=== PATIENT | male | born 1955 | race Caucasian/White ===

== ENCOUNTER 2017-01-20 20:37 | Inpatient (IN) | payer OTHER ==
[~2017-01-20] VITALS: Ht 177.8 cm; Wt 84.8 kg
--- NOTE | ~2017-01-20 | H ---
[facility] [place] [address] HISTORY AND PHYSICAL Name: FRANCISCO GARCIA Room #: 406-P [facility] IN M.R.#: [id number] Admission: 01/20/17 Attend Phys: Letser Sánchez MD Discharge: 01/23/17 Date of : 55 Report #: [id number] THIS REPORT FOR: //name// CC: [facility] physician/PCP Lester Sánchez ATTENDING PHYSICIAN: Lester Sánchez M.D. PRIMARY CARE PHYSICIAN: [facility]. CHIEF COMPLAINT: Abdominal pain. HISTORY OF PRESENT ILLNESS: The patient is a 61-year-old male who comes to the ER complaining of constipation. He said he had not had a bowel movement in the last 3 days. His pain is across the krw-ip-vgzpm abdomen. He says eating anything makes his pain significantly worse. He has been able to tolerate some liquids without any significant pain. Because of his pain after eating, he has decreased his oral intake. He has continued to take his regular insulin and metformin despite not eating much. He did report that he had a bloody stool which was dark red and "changed the toilet water red" about 3 days ago. He had not had any bowel movement since. He denies any diarrhea prior to that. Denies any vomiting. Denies any fevers or chills. In the ER, he was hypoglycemic and has been given D50. He also was noted to have a significant esophagitis on CT. He denies ever having an EGD in the past. He has had prior colonoscopy. He is on Plavix. PAST MEDICAL HISTORY: Significant for coronary artery disease with prior [place], diabetes, hypertension, CVA and hyperlipidemia. PAST SURGICAL HISTORY: Coronary stents times 2, abdominal surgery as a child and left ankle repair. ALLERGIES: NITROGLYCERIN, CODEINE, CONTRAST DYE, FENTANYL, LATEX SENSITIVITY and PENICILLIN. HOME MEDICATIONS: Lantus insulin 75 units at bedtime, sertraline 50 mg daily, Humalog insulin 13 units with meals, metformin 500 mg b.i.d., Neurontin 300 mg q.i.d., aspirin 81 mg daily, Plavix 75 mg daily, Lopressor 50 mg b.i.d., simvastatin 20 mg at bedtime and Flomax 0.4 mg daily. SOCIAL HISTORY: The patient was a previous pipe smoker for about 40 years. He quit a few months ago. He denies any alcohol or drug use. He does live alone. 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 FAMILY HISTORY: Unknown as the patient is adopted. REVIEW OF SYSTEMS: Twelve-point review of systems was reviewed with the [address] [address] HISTORY AND PHYSICAL Name: FRANCISCO GARCIA Room #: 406-P DIS IN M.R.#: [id number] Admission: 01/20/17 Attend Phys: Lester Sánchez MD Discharge: 01/23/17 Date of : 55 Report #: [id number] patient; otherwise, negative unless stated in the HPI. PHYSICAL EXAMINATION: GENERAL: The patient is an alert male in no acute distress. VITAL SIGNS: Temperature is 36.8, heart rate 87, respirations 18, blood pressure is 110/61 and oxygen 93% on room air. HEENT: PERRLA. Sclerae is nonicteric. Oral mucosa is pink and moist. NECK: Supple. No JVD noted. CARDIAC: Normal S1, S2. No murmurs, rubs or gallops. RESPIRATORY: Breath sounds are clear bilaterally. No wheezing or rhonchi. Breathing is nonlabored. ABDOMEN: Soft and significantly tender throughout, especially in the epigastric area to even light touch. Bowel sounds are positive. VASCULAR: No edema noted. Pedal pulses are 2+. NEUROLOGIC: The patient is alert and oriented times 3. Speech is clear. He is answering questions appropriately and following commands. No focal weakness noted. LABS AND DIAGNOSTICS: CBC showed a WBC of 10.1, hemoglobin 13 and platelets 410,000. Sodium 141, potassium 3.7, BUN 6, creatinine 0.9 and glucose 48. LFTs within normal limits. Albumin 2.9. Lipase 87. U/A is negative for leukocyte esterase. EKG showing sinus rhythm. CT of the abdomen showed distal esophagus demonstrates some wall thickening, raising concern for esophagitis. There is a tiny liver cyst. There is moderate diverticulosis without diverticulitis or obstruction, and there is an infrarenal abdominal aortic aneurysm measuring 3.2 cm. ASSESSMENT AND PLAN: 1. Abdominal pain. CT is showing esophagitis, but the patient also reported melena. We cannot rule out gastrointestinal bleed. We will consult GI for possible EGD and/or colonoscopy. We will Hemoccult mixed stool. We will add Protonix b.i.d. He is not having any active bleeding. We will keep him n.p.o. 2. Hypoglycemia, likely due to poor p.o. intake with home dose of insulin. He did take his medications , including his Lantus. So, we will have to continue with D5 per IV fluids to maintain his sugars. We will hold off on any home metformin or further insulin and if his sugars improve, we will add back the sliding scale insulin. 3. Reported melanoma times 1. Hemoglobin is stable, hemoccult mixed stools. 4. Diabetes. Blood sugar is low. Continue with the above plan. 5. History of coronary artery disease with prior stents. He is denying any chest pain. He says his abdominal pain is very different from his prior cardiac pain and troponin is negative. We will continue with Plavix until we know if he has had any GI bleeding. 6. Hypertension. This is stable. Continue home medications. 7. Hyperlipidemia. Continue statin therapy. 8. Incidental infrarenal abdominal aortic aneurysm per CT. This has not been [facility] [address] [place] [address] HISTORY AND PHYSICAL Name: FRANCISCO GARCIA Room #: 406-P [facility] IN M.R.#: [id number] Admission: 01/20/17 Attend Phys: Lester Sánchez MD Discharge: 01/23/17 Date of : 55 Report #: [id number] mentioned in his prior records. We will need to follow up on this outpatient with serial CTs to ensure stability. 9. Deep venous thrombosis prophylaxis, place sequential compression devices. We will continue to follow the patient closely throughout the hospitalization and make changes based on the clinical status. <ELECTRONICALLY SIGNED> By: AMBER Chun 01/24/17 0658 1049 1248 AMBER Chun /nt
--- NOTE | ~2017-01-20 | EKG ---
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
[~2017-01-20 20:37] MED LIST: ASPIR 8181 MG PO; FLOMAX0.4 MG PO; HUMALOG100 UNIT/1 SUBQ; LANTUS100 UNIT/M SUBQ; LOPRESSOR50 PO; METFORMIN HCL500 MG PO; NOVOLIN 70100 UNIT/5 SQ; PLAVIX 75 MG TA75 MG PO; SERTRALINE HCL50 MG PO; ULTRAM 50MG TAB50 MG PO; ZOCOR20 MG PO
[2017-01-20 20:38] VITALS: BP 110/61
[2017-01-20 21:08] LABS: ABSOLUTE NEUTROPHILS 4.7 thou/uL (1.4-8.2); BASOPHILS 1.4 % (0.0-2.0); EOSINOPHILS 4.2 % (0.0-3.0); LYMPHOCYTES 43.5 % (24.0-44.0); MCH 28.1 pg (26.0-34.0); MCHC 34.2 g/dL (28.0-37.0); MCV 82.4 fL (80.0-100.0); MONOCYTES 4.9 % (1.0-8.0); PLATELET COUNT 410 thou/uL (150-400); RBC 4.62 mil/uL (4.50-6.00); RDW 14.3 % (10.5-14.5); WBC 10.1 thou/uL (4.0-11.0)
[2017-01-20 21:11] LABS: MANUAL DIFF NO
[2017-01-20 21:21] LABS: ANION GAP 6 mmol/L (7-16); BUN 6 mg/dL (7-18); CHLORIDE 110 mmol/L (98-107); CO2 25 mmol/L (21-32); CREATININE 0.9 mg/dL (0.6-1.3); GLUCOSE 48 mg/dL (70-99); POTASSIUM 3.7 mmol/L (3.5-5.1); SODIUM 141 mmol/L (136-145)
[2017-01-20 21:27] LABS: ALBUMIN 2.9 g/dL (3.4-5.0); ALKALINE PHOSPHATASE 93 U/L (46-116); SGOT 17 U/L (15-37); SGPT 24 U/L (30-65); TOTAL BILIRUBIN 0.2 mg/dL (<0.1-1.0); TOTAL PROTEIN 6.4 g/dL (6.4-8.2); TROPONIN-I < 0.04 ng/mL (<0.04-0.07)
[2017-01-20] MEDS ORDERED: NEURONTIN 300300 M1 PO (23:02)
[2017-01-21 00:24] VITALS: BP 129/57
[2017-01-21 02:28] LABS: URINE BILIRUBIN NEGATIVE (Negative); URINE BLOOD NEGATIVE (Negative); URINE COLOR YELLOW; URINE GLUCOSE-RANDOM* TRACE (Negative); URINE KETONES NEGATIVE (Negative); URINE LEUKOCYTES-REFLEX NEGATIVE (Negative); URINE PROTEIN (DIPSTICK) NEGATIVE (Negative); URINE SPECIFIC GRAVITY <= 1.005 (1.003-1.035); URINE UROBILINOGEN 0.2 E.U./dl (0.2-1.0)
[2017-01-21 08:00] VITALS: BP 100/63
[2017-01-21 16:00] VITALS: BP 110/56
[2017-01-21 19:42] VITALS: BP 113/62
[2017-01-22 04:44] VITALS: BP 113/70
[2017-01-22 08:00] VITALS: BP 139/63
[2017-01-22 11:24] LABS: HEMATOCRIT 41.5 % (42.0-52.0); HEMOGLOBIN 13.5 gm/dL (14.0-18.0); MCH 27.1 pg (26.0-34.0); MCHC 32.4 g/dL (28.0-37.0); MCV 83.5 fL (80.0-100.0); RBC 4.97 mil/uL (4.50-6.00); RDW 14.9 % (10.5-14.5); WBC 11.4 thou/uL (4.0-11.0)
[2017-01-22 11:32] LABS: CALCIUM 9.1 mg/dL (8.5-10.1); CREATININE 0.9 mg/dL (0.6-1.3); POTASSIUM 4.5 mmol/L (3.5-5.1)
[2017-01-22 16:00] VITALS: BP 116/63
[2017-01-22 20:00] VITALS: BP 122/70
[2017-01-23 04:21] VITALS: BP 145/61
[2017-01-23] MEDS ORDERED: MIRALAX17 GM PO (08:32)
[2017-01-23] MEDS ORDERED: PROTONIX40 M2 PO (08:32)
[2017-01-23 08:35] VITALS: BP 145/61
== END 2017-01-23 14:22 | disposition home or self-care (01) | DRG 392 ==
LOC: ER 20:37 → 4N 23:55 → EROBS 23:55 → 4N 01-21 00:24
PROVIDERS: Emergency Medicine; Internal Medicine
PROC: 0DJ08ZZ Inspection of Upper Intestinal Tract, Via Natural or Artificial Opening Endoscopic (ICD-10-PCS; principal; 2017-01-22)
DX: K59.00 Constipation, unspecified (principal); K20.9 Esophagitis, unspecified; I25.10 Atherosclerotic heart disease of native coronary artery without angina pectoris; I10 Essential (primary) hypertension; J44.9 Chronic obstructive pulmonary disease, unspecified; F17.290 Nicotine dependence, other tobacco product, uncomplicated; E11.649 Type 2 diabetes mellitus with hypoglycemia without coma; I11.9 Hypertensive heart disease without heart failure; E78.5 Hyperlipidemia, unspecified; I99.9 Unspecified disorder of circulatory system; Z60.2 Problems related to living alone; Z86.73 Personal history of transient ischemic attack (TIA), and cerebral infarction without residual deficits; I25.2 Old myocardial infarction; Z95.5 Presence of coronary angioplasty implant and graft; Z88.6 Allergy status to analgesic agent; Z79.82 Long term (current) use of aspirin; Z88.8 Allergy status to other drugs, medicaments and biological substances; Z88.0 Allergy status to penicillin; Z91.040 Latex allergy status; Z91.041 Radiographic dye allergy status; Z79.4 Long term (current) use of insulin; Z79.899 Other long term (current) drug therapy; Z91.09 Other allergy status, other than to drugs and biological substances
CPT/HCPCS: 10091; 62110; 62900

== ENCOUNTER 2017-03-04 22:16 | Inpatient (IN) | payer OTHER ==
[~2017-03-04] VITALS: Ht 177.8 cm; Wt 81.2 kg
--- NOTE | ~2017-03-04 | EKG ---
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
--- NOTE | ~2017-03-04 | EKG ---
[address] [address] ELECTROCARDIOGRAM REPORT Name: FRANCISCO GARCIA Room #: 463-P [facility] IN M.R.#: [id number] Admission: 03/05/17 Attend Phys: Neymar Velasquez Discharge: 03/05/17 Date of : 55 Report #: [id number] THIS REPORT FOR: //name// [facility] ED Test Date: 2017-03-04 Test Time: 22:32:58 Pat Name: FRANCISCO GARCIA Department: Room: 463 Gender: M Upper Doubler: KEARA : 1955 Requested By: Nilda Figueroa Order Number: [id number] MD: Jayden Kwan Measurements Intervals [place] Rate: 88 P: 72 [place]: 172 QRS: 55 QRSD: 91 T: 128 QT: 401 QTc: 486 Interpretive Statements Sinus rhythm PVCs Nonspecific ST segments Electronically Signed On 03-05-2017 22:32:02 CDT by Jayden Kwan [email or web address] <ELECTRONICALLY SIGNED> By: Jayden Kwan MD 03/05/172231 31 2232 Jayden Kwan MD /OMSEL
--- NOTE | ~2017-03-04 | EKG ---
[address] [place] [address] ELECTROCARDIOGRAM REPORT Name: FRANCISCO GARCIA Room #: 463- DIS IN M.R.#: [id number] Admission: 03/05/17 Attend Phys: Neymar Velasquez Discharge: 03/05/17 Date of : 55 Report #: [id number] THIS REPORT FOR: //name// [facility] Test Date: 2017-03-05 Test Time: 08:10:39 Pat Name: FRANCISCO GARCIA Department: Room: 463 P Gender: M Vice Chair: mayur pablo : 1955 Requested By: Re Kc Order Number: [id number] MD: Jayden Kwan Measurements Intervals [place] Rate: 89 P: 79 [place]: 177 QRS: 79 QRSD: 87 T: 121 QT: 403 QTc: 491 Interpretive Statements Sinus rhythm Consider left atrial enlargement Abnormal R-wave progression, late transition Borderline repolarization abnormality Borderline prolonged QT interval Compared to ECG 02/13/2017 20:24:33 ST (T wave) deviation no longer present Electronically Signed On 03-05-2017 22:40:38 CDT by Jayden Kwan [email or web address] <ELECTRONICALLY SIGNED> By: Jayden Kwan MD 03/05/17 2240 0810 0810 Jayden Kwan MD /EPI
[~2017-03-04 22:16] MED LIST changes: +ASPIRIN81 M2 PO; +GLUCOPHAGE1000 MG PO; +LANTUS SUBQ; +LISINOPRIL10 MG PO; +LOPRESSOR25 PO; +MIRALAX17 GM PO; +NEURONTIN 300300 M1 PO; +PLAVIX 75 MG TA75 M1 PO; +PRINIVIL10 MG PO; +PROTONIX40 M2 PO; +ZOLOFT25 MG PO
[2017-03-04 22:17] VITALS: BP 173/75
[2017-03-04 23:00] LABS: ABSOLUTE NEUTROPHILS 4.3 thou/uL (1.4-8.2); BASOPHILS 1.9 % (0.0-2.0); EOSINOPHILS 4.8 % (0.0-3.0); HEMATOCRIT 38.6 % (42.0-52.0); HEMOGLOBIN 12.8 gm/dL (14.0-18.0); LYMPHOCYTES 37.8 % (24.0-44.0); MCH 26.9 pg (26.0-34.0); MCHC 33.1 g/dL (28.0-37.0); MONOCYTES 4.8 % (1.0-8.0); PLATELET COUNT 413 thou/uL (150-400); POLYS 50.7 % (36.0-66.0); RBC 4.76 mil/uL (4.50-6.00); RDW 15.9 % (10.5-14.5); WBC 8.5 thou/uL (4.0-11.0)
[2017-03-04 23:04] LABS: MANUAL DIFF NO
[2017-03-04 23:26] LABS: CHLORIDE 104 mmol/L (98-107); POTASSIUM 4.2 mmol/L (3.5-5.1); SODIUM 138 mmol/L (136-145)
[2017-03-04 23:35] LABS: BUN 10 mg/dL (7-18); CALCIUM 8.9 mg/dL (8.5-10.1); CO2 25 mmol/L (21-32); CREATININE 0.9 mg/dL (0.7-1.3); GLUCOSE 242 mg/dL (74-106)
[2017-03-04 23:41] LABS: TROPONIN-I < 0.04 ng/mL (<0.04-0.07)
[2017-03-04 23:42] LABS: ANION GAP 8 mmol/L (7-16)
[2017-03-05 01:37] VITALS: BP 150/73
[2017-03-05 01:45] VITALS: BP 140/86
[2017-03-05] MEDS ORDERED: ASPIRIN325 PO (02:18)
[2017-03-05] MEDS ORDERED: NEURONTIN 300300 M1 PO (02:19)
[2017-03-05 03:04] LABS: APTT 26.3 Seconds (24.5-32.8); PROTIME 10.2 Seconds (9.3-11.4)
[2017-03-05 04:11] VITALS: BP 140/69
[2017-03-05 05:54] LABS: CK-MB MASS 7.6 ng/mL (<0.5-3.6); TROPONIN-I < 0.04 ng/mL (<0.04-0.07)
[2017-03-05 08:09] VITALS: BP 114/69
[2017-03-06] MEDS ORDERED: DUONEB 2.5-0.5 M3 ML INH ×2 (12:23→13:11)
[2017-03-06] MEDS ORDERED: PREDNISONE 20 M20 M1 PO (13:11)
[2017-03-06] MEDS ORDERED: GLUCOPHAGE1000 MG PO (13:11)
== END 2017-03-05 10:06 | disposition left against medical advice (07) | DRG 313 ==
LOC: ER 22:16 → EROBS 03-05 → 4W 03-05 01:38
PROVIDERS: Emergency Medicine
DX: R07.89 Other chest pain (principal); J44.1 Chronic obstructive pulmonary disease with (acute) exacerbation; E11.65 Type 2 diabetes mellitus with hyperglycemia; I10 Essential (primary) hypertension; I25.10 Atherosclerotic heart disease of native coronary artery without angina pectoris; E78.5 Hyperlipidemia, unspecified; F17.290 Nicotine dependence, other tobacco product, uncomplicated; Z53.21 Procedure and treatment not carried out due to patient leaving prior to being seen by health care provider; Z79.4 Long term (current) use of insulin; Z71.6 Tobacco abuse counseling; Z76.5 Malingerer [conscious simulation]; Z95.5 Presence of coronary angioplasty implant and graft; Z79.82 Long term (current) use of aspirin; Z79.899 Other long term (current) drug therapy; Z88.6 Allergy status to analgesic agent; Z91.041 Radiographic dye allergy status; Z91.040 Latex allergy status; Z88.0 Allergy status to penicillin; Z91.048 Other nonmedicinal substance allergy status; Z88.8 Allergy status to other drugs, medicaments and biological substances; I25.2 Old myocardial infarction
CPT/HCPCS: 10045

== ENCOUNTER 2017-04-12 11:55 | Emergency (ER) | payer OTHER ==
[~2017-04-12] VITALS: Ht 177.8 cm; Wt 82.6 kg
--- NOTE | ~2017-04-12 | EKG ---
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: : 1955 Requested By: Bean Estrada Order Number: [id number] MD: Michael Escobar Measurements Intervals [place] Rate: 92 P: 78 [place]: 182 QRS: 76 QRSD: 89 T: 77 QT: 375 QTc: 464 Interpretive Statements Sinus rhythm Abnormal R-wave progression, late transition Borderline repolarization abnormality Compared to ECG 03/05/2017 08:10:39 No significant changes Electronically Signed On 04-14-2017 7:52:46 CDT by Michael Escobar [email or web address] <ELECTRONICALLY SIGNED> By: Michael Escobar MD, [facility] 04/14/17 0752 1200 99 Michael Escobar MD, FACC /EPI
[~2017-04-12 11:55] MED LIST changes: +ASPIRIN325 PO; +DUONEB 2.5-0.5 M3 ML INH; +PREDNISONE 20 M20 M1 PO
[2017-04-12 13:21] LABS: ABSOLUTE NEUTROPHILS 3.1 thou/uL (1.4-8.2); BASOPHILS 1.1 % (0.0-2.0); EOSINOPHILS 9.9 % (0.0-3.0); HEMATOCRIT 39.5 % (42.0-52.0); LYMPHOCYTES 39.3 % (24.0-44.0); MCH 26.6 pg (26.0-34.0); MCHC 32.9 g/dL (28.0-37.0); MCV 80.8 fL (80.0-100.0); MONOCYTES 5.8 % (1.0-8.0); PLATELET COUNT 307 thou/uL (150-400); POLYS 43.9 % (36.0-66.0); RDW 16.4 % (10.5-14.5); WBC 7.1 thou/uL (4.0-11.0)
[2017-04-12 13:25] LABS: MANUAL DIFF NO
[2017-04-12 13:40] LABS: ANION GAP 11 mmol/L (7-16); BUN 5 mg/dL (7-18); CALCIUM 9.1 mg/dL (8.5-10.1); CHLORIDE 106 mmol/L (98-107); CO2 26 mmol/L (21-32); GLUCOSE 140 mg/dL (74-106); POTASSIUM 3.9 mmol/L (3.5-5.1); SODIUM 143 mmol/L (136-145)
[2017-04-12 13:45] LABS: APTT 24.8 Seconds (24.5-32.8); INR 1.1; PROTIME 10.9 Seconds (9.3-11.4)
[2017-04-12 14:08] LABS: ALBUMIN 3.3 g/dL (3.4-5.0); ALKALINE PHOSPHATASE 84 U/L (46-116); MAGNESIUM 1.4 mg/dL (1.8-2.4); NT-PRO BRAIN NAT PEPTIDE 308 pg/mL (<300); SGOT 14 U/L (15-37); SGPT 17 U/L (30-65); TOTAL BILIRUBIN 0.2 mg/dL (<0.1-1.0); TOTAL PROTEIN 6.7 g/dL (6.4-8.2); TROPONIN-I < 0.04 ng/mL (<0.04-0.07)
[2017-04-12] MEDS ORDERED: ZOFRAN ODT4 MG DISSOLVE (14:44)
[2017-04-12] MEDS ORDERED: TRAMADOL 50 MG50 MG PO (14:44)
== END 2017-04-12 15:24 | disposition home or self-care (01) ==
LOC: ER 11:55
PROVIDERS: Emergency Medicine
DX: R07.89 Other chest pain (principal); R55 Syncope and collapse; I25.10 Atherosclerotic heart disease of native coronary artery without angina pectoris; I10 Essential (primary) hypertension; E11.9 Type 2 diabetes mellitus without complications; E78.00 Pure hypercholesterolemia, unspecified; F17.200 Nicotine dependence, unspecified, uncomplicated; J44.9 Chronic obstructive pulmonary disease, unspecified; Z98.890 Other specified postprocedural states; Z95.5 Presence of coronary angioplasty implant and graft; Z79.4 Long term (current) use of insulin; Z88.6 Allergy status to analgesic agent; Z88.5 Allergy status to narcotic agent; Z91.041 Radiographic dye allergy status; Z88.4 Allergy status to anesthetic agent; Z91.040 Latex allergy status; Z88.0 Allergy status to penicillin; Z91.048 Other nonmedicinal substance allergy status

== ENCOUNTER 2017-04-28 19:37 | Observation (INO) | payer OTHER ==
[~2017-04-28] VITALS: Ht 167.6 cm; Wt 86.2 kg
--- NOTE | ~2017-04-28 | EKG ---
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: [id number] : 1955 Requested By: Conor Najera Order Number: [id number] MD: Leonel Newsome Measurements Intervals [place] Rate: 82 P: 53 [place]: 182 QRS: 47 QRSD: 90 T: 167 QT: 378 QTc: 442 Interpretive Statements Sinus rhythm Probable left atrial enlargement Borderline repolarization abnormality nonspecific ST segment abnormalities Compared to ECG 04/12/2017 12:00:19 no significant change Electronically Signed On 04-29-2017 2:13:19 CDT by Leonel Newsome [email or web address] <ELECTRONICALLY SIGNED> By: Leonel Newsome MD 04/29/17 0213 2144 43 Leonel Newsome MD /OSMEL
--- NOTE | ~2017-04-28 | EKG ---
[address] [place] [address] ELECTROCARDIOGRAM REPORT Name: FRANCISCO GARCIA Room #: 447-P [facility].R.#: [id number] Admission: 04/28/17 Attend Phys: Neymar Velasquez Discharge: Date of : 55 Report #: [id number] THIS REPORT FOR: //name// [facility] [place] ED Test Date: 2017-04-28 Test Time: 19:42:36 Pat Name: FRANCISCO GARCIA Department: Room: [facility] Gender: M Diamond Saw Operator: MZOOCarlota : 1955 Requested By: Conor Najera Order Number: [id number] MD: Leonel Newsome Measurements Intervals [place] Rate: 91 P: 66 [place]: 177 QRS: 86 QRSD: 90 T: 158 QT: 392 QTc: 483 Interpretive Statements Sinus rhythm Nonspecific ST segmentT abnormalities, lateral leads Borderline prolonged QT interval Compared to ECG 04/12/2017 12:00:19 no significant change Electronically Signed On 04-29-2017 2:11:34 CDT by Leonel Newsome [email or web address] <ELECTRONICALLY SIGNED> By: Leonel Newsome MD 04/29/17 0211 194 41 Leonel Newsome MD /OSMEL
[~2017-04-28 19:37] MED LIST changes: +TRAMADOL 50 MG50 MG PO; +ZOFRAN ODT4 MG DISSOLVE
[2017-04-28 19:38] VITALS: BP 133/66
[2017-04-28 20:22] LABS: ABSOLUTE NEUTROPHILS 5.8 thou/uL (1.4-8.2); BASOPHILS 0.8 % (0.0-2.0); EOSINOPHILS 7.6 % (0.0-3.0); HEMATOCRIT 38.6 % (42.0-52.0); HEMOGLOBIN 12.8 gm/dL (14.0-18.0); LYMPHOCYTES 36.5 % (24.0-44.0); MCH 26.4 pg (26.0-34.0); MCHC 33.1 g/dL (28.0-37.0); MCV 79.7 fL (80.0-100.0); MONOCYTES 5.3 % (1.0-8.0); POLYS 49.8 % (36.0-66.0); RBC 4.83 mil/uL (4.50-6.00); RDW 16.2 % (10.5-14.5); WBC 12.2 thou/uL (4.0-11.0)
[2017-04-28 20:23] LABS: MANUAL DIFF NO
[2017-04-28 20:29] LABS: ANION GAP 10 mmol/L (7-16); BUN 9 mg/dL (7-18); CALCIUM 9.1 mg/dL (8.5-10.1); CHLORIDE 104 mmol/L (98-107); CO2 21 mmol/L (21-32); CREATININE 0.9 mg/dL (0.7-1.3); GLUCOSE 231 mg/dL (74-106); SODIUM 135 mmol/L (136-145)
[2017-04-28 20:35] LABS: ALBUMIN 3.1 g/dL (3.4-5.0); ALKALINE PHOSPHATASE 89 U/L (46-116); MAGNESIUM 1.3 mg/dL (1.8-2.4); SGOT 14 U/L (15-37); SGPT 17 U/L (30-65); TOTAL BILIRUBIN 0.2 mg/dL (<0.1-1.0); TOTAL PROTEIN 6.8 g/dL (6.4-8.2); TROPONIN-I < 0.04 ng/mL (<0.04-0.07)
[2017-04-28 20:46] LABS: PLATELET COUNT 387 thou/uL (150-400)
[2017-04-28 22:50] VITALS: BP 93/63
[2017-05-01] MEDS ORDERED: CIPRO500 MG PO (23:05)
[2017-05-01] MEDS ORDERED: NORCO 5-325 TA1 EACH PO (23:05)
[2017-05-01] MEDS ORDERED: ZOFRAN ODT4 MG PO (23:05)
== END 2017-04-29 06:05 | disposition left against medical advice (07) ==
LOC: ER 19:37 → EROBS 22:03 → 4S 22:52
PROVIDERS: Emergency Medicine
DX: R07.89 Other chest pain (principal); I25.2 Old myocardial infarction; I10 Essential (primary) hypertension; E11.9 Type 2 diabetes mellitus without complications; E78.5 Hyperlipidemia, unspecified; J44.9 Chronic obstructive pulmonary disease, unspecified; F17.210 Nicotine dependence, cigarettes, uncomplicated; Z95.5 Presence of coronary angioplasty implant and graft

== ENCOUNTER 2017-07-08 20:40 | Emergency (ER) | payer OTHER ==
--- NOTE | ~2017-07-08 | EKG ---
[address] [address] [address] [facility] 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: BILLY : 1955 Requested By: Latrice Sosa Order Number: [id number] MD: Leonel Newsome Measurements Intervals [place] Rate: 97 P: 68 [place]: 158 QRS: 63 QRSD: 87 T: 84 QT: 375 QTc: 477 Interpretive Statements Sinus rhythm Probable left atrial enlargement Abnormal R-wave progression, late transition Nonspecific ST segment abnormalities Borderline prolonged QT interval Compared to ECG 04/28/2017 21:44:37 ST (T wave) deviation now present Electronically Signed On 07-09-2017 10:54:54 CDT by Leonel Newsome [email or web address] <ELECTRONICALLY SIGNED> By: Leonel Newsome MD 07/09/17 1054 42 42 Leonel Newsome MD /OSMEL
[~2017-07-08 20:40] MED LIST changes: +CIPRO500 MG PO; +NORCO 5-325 TA1 EACH PO; +ZOFRAN ODT4 MG PO
== END 2017-07-08 21:22 | disposition left against medical advice (07) ==
LOC: ER 20:40
DX: Z53.21 Procedure and treatment not carried out due to patient leaving prior to being seen by health care provider (principal)

== ENCOUNTER 2019-06-04 19:46 | Inpatient (IN) | payer OTHER ==
[~2019-06-04] VITALS: Ht 177.8 cm; Wt 81.2 kg
[~2019-06-04 19:46] MED LIST changes: +ASPIR 8181 M1 PO; +BACTRIM DS TAB1 EACH PO; +HUMALOG KW100 UNIT/1 SUBQ; +LANTUS SOL100 UNIT/1 INJECTION; +LEVAQUIN 500 M500 MG PO; +LIPITOR10 MG PO; +METOPROLOL TART25 MG PO; +PERCOCET 5-3251 EACH PO; +PREDNISONE 20 M20 MG PO; +TOPROL XL25 MG PO; +VENTOLIN HFA 1818 GM INH; +XARELTO15 MG PO
[2019-06-04 19:48] VITALS: BP 129/77
[2019-06-04 20:35] LABS: HEMATOCRIT 32.3 % (42.0-52.0); HEMOGLOBIN 10.1 gm/dL (14.0-18.0); MCH 22.2 pg (26.0-34.0); MCHC 31.2 g/dL (28.0-37.0); MCV 71.1 fL (80.0-100.0); PLATELET COUNT 434 thou/uL (150-400); RBC 4.54 mil/uL (4.50-6.00); RDW 24.2 % (10.5-14.5); WBC 7.4 thou/uL (4.0-11.0)
[2019-06-04 20:39] LABS: ANION GAP 8 mmol/L (7-16); BUN 9 mg/dL (7-18); CALCIUM 8.7 mg/dL (8.5-10.1); CHLORIDE 102 mmol/L (98-107); CO2 25 mmol/L (21-32); CREATININE 0.9 mg/dL (0.7-1.3); GLUCOSE 280 mg/dL (74-106); POTASSIUM 3.6 mmol/L (3.5-5.1); SODIUM 135 mmol/L (136-145)
[2019-06-04 20:48] LABS: TROPONIN-I <0.06 ng/mL (<0.06)
[2019-06-04 20:50] LABS: INR 1.1; PROTIME 11.4 Seconds (9.3-11.4)
[2019-06-04 21:05] LABS: ABSOLUTE NEUTROPHILS 3.7 thou/uL (1.4-8.2)
[2019-06-04 21:06] LABS: ANISOCYTOSIS 3+; HYPOCHROMASIA 2+; MICROCYTES 2+; PLATELET ESTIMATE INCREASED; POIKILOCYTOSIS 1+; POLYCHROMASIA 1+
[2019-06-04 21:57] VITALS: BP 124/66
[2019-06-04 22:28] VITALS: BP 124/66
[2019-06-04 22:48] VITALS: BP 140/57
[2019-06-04 23:17] LABS: CHOLESTEROL 90 mg/dL (<200); HDL CHOLESTEROL 30 mg/dL (>40); LDL CHOLESTEROL 26 mg/dL (<100); TRIGLYCERIDE 173 mg/dL (<150); VLDL 35 mg/dL (<40)
[2019-06-04 23:18] LABS: SERUM ASSESSMENT Clear
--- NOTE | 2019-06-05 04:12 | NUR ---
ADM. NOTE. PT ARRIVED ON UNIT AROUND 2200 FOR ED FOR CHEST PAIN. ALERT AND ORIENTED. PT IS ALLERGIC TO NITRO. MORPHINE GIVEN X 1 ON THE UNIT. PT WOULD ONLY TAKE MORPHINE. REFUSED OXYGEN WHEN HIS O2 WAS LESS THAN 90%/.. REFUSED GI COCKTAIL. PT WAS NPO SINCE MIDNIGHT. NO C/O CP THIS FAR. PT GENERALLY NON COMPLAIANT WITH PLAN OF CARE. CONTINOUS EDUCATION IS NEEDED. WILL FOLLOW POC
[2019-06-05 06:14] VITALS: BP 145/57
--- NOTE | 2019-06-05 07:47 | NUR ---
PRIOR TO REPORT, PT CALLED TO SAY HE HAD CP, RATES AT 8/10, STATES HE HAD ALL NIGHT BUT NO ONE CARES, NIGHT NURSE ASKED THIS A.M. WHEN PASSING EARLY AM MED AND PT DENIED ANY CP. VS WNL. DECLINES VS YET WENT AHEAD AND TOOK THEM. NIGHT STAFF REPORTS PT DECLINED PHOTOGRAPH OF A MISSING LITTLE TOE ON LEFT FOOT, WILL ACCOMPLISH TODAY IF ALLOWED. AFTER GIVEN MS THIS A.M. RATED PAIN LESS, WOULD NOT OPEN EYES FOR ME TO SHOW HIM CALL LIGHT USE, STATES HE ALREADY KNOWS. SPOKE W/CARDIOLOGY TRAILER CHIEF TO GIVE BRIEF UPDATE. WILL CONTINUE TO MONITOR. REPORTS ALSO OF SATS LOW WITHOUT 02 NC, WILL RELAY TO HOSPITALIST THIS A.M. SHOULD RT TX BE NEEDED. COARSE LUNGS AT THIS TIME.
--- NOTE | 2019-06-05 07:53 | EKG ---
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 Machine Operator: BRITTNI : 1955 Requested By: Latrice Sosa Order Number: [id number] MD: Michael Escobar Measurements Intervals [place] Rate: 97 P: 79 [place]: 180 QRS: -41 QRSD: 137 T: 119 QT: 388 QTc: 493 Interpretive Statements Sinus rhythm Left bundle branch block Compared to ECG 07/08/2017 20:43:46 Left bundle branch block is now present Electronically Signed On 06-05-2019 7:53:27 CDT by Michael Escobar [email or web address] ��������������������������������������������� <ELECTRONICALLY SIGNED> ���������������������������������������� By: Michael Escobar MD, [facility] ��������������������������������������������� 06/05/19 0753 50 50 Michael Escobar MD, [facility] /EPI
--- NOTE | 2019-06-05 08:00 | EKG ---
[place] [address] [facility] [place] [address] ELECTROCARDIOGRAM REPORT Name: FRANCISCO GARCIA Room #: 211-P ADM IN M.R.#: [id number] ������������������ Admission: 06/04/19 ������������������ Attend Phys: Lester Sánchez MD Discharge: ������������������ Date of : 55 Report #: [id number] ����������������������������������������������������������������� [id number] THIS REPORT FOR: //name// [facility] Test Date: 2019-06-05 Test Time: 07:27:07 Pat Name: FRANCISCO GARCIA Department: Room: 211 P Gender: M Photolithographer: NORMA : 1955 Requested By: Jair Fry Order Number: [id number] MD: Michael Escobar Measurements Intervals [place] Rate: 83 P: 72 [place]: 196 QRS: -62 QRSD: 139 T: 91 QT: 449 QTc: 528 Interpretive Statements Sinus rhythm Left bundle branch block Compared to ECG 07/08/2017 20:43:46 No significant change was found Electronically Signed On 06-05-2019 8:00:32 CDT by Michael Escobar [email or web address] ��������������������������������������������� <ELECTRONICALLY SIGNED> ���������������������������������������� By: Michael Escobar MD, [facility] ��������������������������������������������� 06/05/19 08 6 6 Michael Escobar MD, [facility] /EPI
--- NOTE | 2019-06-05 08:25 | NUR ---
REFUSING 02 TOOK MEDS W/ARGUMENT. GENTLE EDUCATION GIVEN RE: CP AND 02 AND FOR PT TO MAKE GREATER ATTEMPTS AT DEEPER INHALATIONS/EXHALATIONS FOR GAS EXCHANGE CONTRIBUTING TO GREATER PAIN RELIEF AND HIGHER 02 RATES, HE DECLINES, FERVENTLY
[2019-06-05] MEDS ORDERED: APAP650 PO (12:09)
[2019-06-05 12:57] VITALS: BP 145/57
--- NOTE | 2019-06-05 13:07 | NUR ---
GAVE PT HIS D/C PAPERS, RX FOR TYLENOL ARTHRITIS. HE SIGNED, STATED HE ALREADY KNOWS EVERYTHING I WAS IN THE PROCESS OF TELLING HIM AND WAVED ME OFF WITH HIS HAND AND PUT HIS HEAD DOWN. ASKED HIM TO STAY IN W/C OR TO CALL OUT FOR HELP IF HE NEEDED TO USE RESTROOM OR WALK WE HAVE TO ENSURE SAFETY. PT HAS REFUSED MOST EVERYTHING SO HAS BEEN D/C'D. WHILE I WAS AT LUNCH ANOTHER NURSE CALLED SECURITY BECAUSE PT WAS WANDERING THE HALLS BEING AGGRESSIVE WITH HIS SPEECH AND NONCOMPLIANT WITH SAFETY/CARES. WILL CONTINUE TO MONITOR UNTIL HIS CAB ARRIVES. ALL BELONGINGS W/PT IN A BAG.
--- NOTE | 2019-06-05 13:32 | NUR ---
patient to dc home and needs transport. verified address and cab vouched for transport home.
[2019-06-06 00:09] LABS: GLYCOHEMOGLOBIN (HGB A1C) 10.3 % (4.8-5.6)
== END 2019-06-05 13:31 | disposition home or self-care (01) | DRG 556 ==
LOC: ER 19:46 → 2N 21:32 → EROBS 21:32 → 2N 22:28
PROVIDERS: Emergency Medicine; Nurse Practitioner Acute Care; ADMIT Internal Medicine
DX: M25.512 Pain in left shoulder (principal); R07.89 Other chest pain; I10 Essential (primary) hypertension; E78.5 Hyperlipidemia, unspecified; E11.9 Type 2 diabetes mellitus without complications; I25.10 Atherosclerotic heart disease of native coronary artery without angina pectoris; J44.9 Chronic obstructive pulmonary disease, unspecified; E78.00 Pure hypercholesterolemia, unspecified; K21.9 Gastro-esophageal reflux disease without esophagitis; F17.210 Nicotine dependence, cigarettes, uncomplicated; I25.2 Old myocardial infarction; Z95.5 Presence of coronary angioplasty implant and graft; Z98.1 Arthrodesis status; Z79.01 Long term (current) use of anticoagulants; Z79.4 Long term (current) use of insulin; Z79.82 Long term (current) use of aspirin; Z79.899 Other long term (current) drug therapy; Z88.0 Allergy status to penicillin; Z88.8 Allergy status to other drugs, medicaments and biological substances; Z91.041 Radiographic dye allergy status; Z91.040 Latex allergy status; Z82.49 Family history of ischemic heart disease and other diseases of the circulatory system; Z71.6 Tobacco abuse counseling
CPT/HCPCS: 10081